=== PATIENT | female | born 1990 | race Caucasian/White ===

== ENCOUNTER 2024-12-23 18:55 | Emergency (ER) | payer BC, SELFPAY ==
[2024-12-23 18:57] VITALS: BP 128/79
--- NOTE | 2024-12-23 19:05 | ED.GENMED ---
History of Present Illness
<Heather Schneider NP - Last Filed: 12/24/24 00:04>
General
Chief Complaint: Vaginal Bleeding
Source: patient
Exam Limitations: none
Time Seen by Provider: 12/23/24 18:59
Nursing documentation reviewed up to this point in time: agreed with
History of Present Illness
History of Present Illness:
Patient to ED wt complaint of heavy vaginal bleeding, pelvic cramping. SHe reports that she is approx 7 weeks . IVF. US last week she states revealed no further growth of the fetus. She has a D&C scheduled for 12/28. she started
with vaginal bleeding. This evening bleeding became heavy, cramping worsening. Follow with OB at [facility] but was advised to come to nearest ED. She reports this is the 6th IVF attempt. No live births. To ED with spouse for eval. VSS,
afebrile.
Past History
<Heather Schneider LEARNING SUPPORT TEACHER - Last Filed: 12/24/24 00:04>
Past History
ED Past Medical History: None
ED Past Surgical History: None
Review of Systems
<Heather Schneider LEARNING SUPPORT TEACHER - Last Filed: 12/24/24 00:04>
Review of Systems
Allergies reviewed?: Yes
All Other Systems: ROS reviewed and negative except as documented in HPI and ROS
Constitutional: Reports no symptoms
EENT: Reports no symptoms
Respiratory: Reports no symptoms
Cardiac: Reports no symptoms
ABD/GI: Reports no symptoms
: Reports bleeding (heavy vaginal bleeding, worsening pelvic cramping.)
Musculoskeletal: Reports no symptoms
Skin: Reports no symptoms
Neurological: Reports no symptoms
Psychiatric: Reports no symptoms
Phy Exam
<Heather Schneider LEARNING SUPPORT TEACHER - Last Filed: 12/24/24 00:04>
General Physical Exam
General Presentation: moderate distress
General age: appears stated age
General Skin: warm and dry
General Habitus: normal
General Mental: alert
Gastrointestinal Exam
Gastrointestinal Exam: normal bowel sounds, non tender, soft and no organomegaly
Genitourinary Exam Female
Exam Female: vaginal bleeding
Vaginal Exam: blood
Vaginal Bleeding: clots and moderate
Musculoskeletal Exam
Musculoskeletal Exam: full ROM and neuro vasc intact
Skin Exam
Skin Exam: normal color, warm/dry and no rash
Psychiatric Exam
Psychiatric Exam: normal mood/affect
Course
<Heather Schneider NP - Last Filed: 12/24/24 00:04>
Orders/Labs/Results
Orders:
Orders
12/23/24 19:06
0.9% Sodium Chloride 1000 ml [Nss] 1,000 ml IV BOLUS
12/23/24 19:10
Complete Blood Count/With Diff Urgent
Comprehensive Metabolic Panel Urgent
12/23/24 19:11
Type+Screen Urgent
12/23/24 19:21
0.9% Sodium Chloride 1000 ml [Nss] 1,000 ml IV BOLUS
Ketorolac [Toradol] 15 mg IV NOW STA
12/23/24 19:27
US W Transvaginal Urgent
Reason For Exam: cramping, bleeding
12/23/24 19:33
Ondansetron Injectable [Zofran] 4 mg IV NOW STA
12/23/24 20:20
HCG, Beta Quantitative [Beta HCG Quantitative] Urgent
Is this a screen?: No
PTT Urgent
Prothrombin Time Urgent
12/23/24 20:28
ABO2 Urgent
BBK Wristband Number:
Associate notified that ABO2 has been ordered: [id number]
Date: 12/23/24
Time: 19:40
Msw ID: [id number]
12/23/24 22:54
Morphine Sulfate 2 mg IV NOW STA
12/24/24 01:09
Ketorolac [Toradol] 15 mg IV NOW STA
Abnormal Lab Results
12/23/24
19:10
Hct 36.1 L %
(37.0-47.0)
Eosinophils % 7.3 H %
(0-6)
Chloride 112 H mmol/L
(98-107)
Glucose 106 H mg/dl
(70-99)
12/23/24 19:10
12/23/24 19:10
Vital Signs
Initial and Last Documented VS:
Initial Vital Signs
Temp Pulse Resp BP Pulse Ox
98.2 F 70 18 128/79 99
12/23/24 18:57 12/23/24 18:57 12/23/24 18:57 12/23/24 18:57 12/23/24 18:57
Last Documented Vital Signs
Temp Pulse Resp BP Pulse Ox
98.2 F 66 16 98/65 100
12/23/24 18:57 12/23/24 20:30 12/23/24 20:30 12/23/24 20:00 12/23/24 20:30
<Hadley Mccormick, DO - Last Filed: 12/24/24 01:16>
Orders/Labs/Results
Orders:
Orders
12/23/24 19:06
0.9% Sodium Chloride 1000 ml [Nss] 1,000 ml IV BOLUS
12/23/24 19:10
Complete Blood Count/With Diff Urgent
Comprehensive Metabolic Panel Urgent
12/23/24 19:11
Type+Screen Urgent
12/23/24 19:21
0.9% Sodium Chloride 1000 ml [Nss] 1,000 ml IV BOLUS
Ketorolac [Toradol] 15 mg IV NOW STA
12/23/24 19:27
US W Transvaginal Urgent
Reason For Exam: cramping, bleeding
12/23/24 19:33
Ondansetron Injectable [Zofran] 4 mg IV NOW STA
12/23/24 20:20
HCG, Beta Quantitative [Beta HCG Quantitative] Urgent
Is this a screen?: No
PTT Urgent
Prothrombin Time Urgent
12/23/24 20:28
ABO2 Urgent
BBK Wristband Number:
Associate notified that ABO2 has been ordered: [id number]
Date: 12/23/24
Time: 19:40
Msw ID: [id number]
12/23/24 22:54
Morphine Sulfate 2 mg IV NOW STA
12/24/24 01:09
Ketorolac [Toradol] 15 mg IV NOW STA
Abnormal Lab Results
12/23/24
19:10
Hct 36.1 L %
(37.0-47.0)
Eosinophils % 7.3 H %
(0-6)
Chloride 112 H mmol/L
(98-107)
Glucose 106 H mg/dl
(70-99)
12/23/24 19:10
12/23/24 19:10
Vital Signs
Initial and Last Documented VS:
Initial Vital Signs
Temp Pulse Resp BP Pulse Ox
98.2 F 70 18 128/79 99
12/23/24 18:57 12/23/24 18:57 12/23/24 18:57 12/23/24 18:57 12/23/24 18:57
Last Documented Vital Signs
Temp Pulse Resp BP Pulse Ox
98.2 F 66 16 98/65 100
12/23/24 18:57 12/23/24 20:30 12/23/24 20:30 12/23/24 20:00 12/23/24 20:30
&;Heather Schneider NP - Last Filed: 12/24/24 00:04>
*Pulse Oximetry
SaO2: 99
Oxygen Mode of Delivery: Room air
Patient hypoxic: no
<Heather Schneider NP - Last Filed: 12/24/24 00:04>
Update Note
Update Note:
Patient to ED wt complaint of heavy vaginal bleeding, cramping. SHe is approx 7 weeks thru IVF,. Bleeding started on friday but today became much worse. US report reviewed. Case discussed with Dr. Wong who examinined patient in ED.
Patient reports bleeding has lessened since her US. Dr. Wong requesting pad count, will reassess in 1 hour. VSS. She remains afebrile. Hg. 12.4. HCG 5351. Patient reesting quietly, in no distresss.
<Hadley Mccormick DO - Last Filed: 12/24/24 01:16>
Update Note
Update Note:
[facility] complaint of heavy vaginal bleeding, cramping. SHe is approx 7 weeks thru IVF,. Bleeding started on friday but today became much worse. US report reviewed. Case discussed with Dr. Wong who examinined patient in ED.
Patient reports bleeding has lessened since her US. Dr. Wong requesting pad count, will reassess in 1 hour. VSS. She remains afebrile. Hg. 12.4. HCG 5351. Patient reesting quietly, in no distresss.
Patient seen by Dr. Wong. She recommends patient be discharged home. Dose of Toradol. Follow-up with reproductive endocrinology in the morning
ED Attending Note
<Heather Schneider NP - Last Filed: 12/24/24 00:04>
-
Portions of this chart may have been created with voice recognition software.� Occasional wrong word or��sound alike� substitutions may have occurred due to the inherent limitations of voice recognition software.
Discharge Plan
Departure
Patient Disposition: Home (Routine Discharge)
Date of Disposition: 12/24/24
Time of Disposition: 01:13
Patient with high blood pressure during this ER visit?: No
Condition: Good
Discharge Problem:
Vaginal bleeding
Instructions: loss - ED discharge instructions
Referrals:
Alonzo Riddle DO [Family Provider]
Nikki Wong MD [Active, Gynecology]
Activity Restrictions/Additional Instructions:
Please follow-up with your labor conciliator at your previously scheduled appointment in the morning.
Thank You for choosing [facility].
It was a pleasure meeting you and taking part in your care. We hope for your continued healing and wellness.
Please read discharge instructions in their entirety. However, they are for general education and may not describe your exact diagnosis at discharge. Information on your ER visit and medical conditions were discussed with you along with appropriate
follow up information...
If indicated, please take your medications as instructed and indicated on discharge paperwork.
Please schedule a follow up appointment as directed. Call to schedule an appointment
Please return to the emergency department with ANY change in, persisting, or worsening of symptoms. If any of your symptoms do not improve, or persist, or become more severe within 6-12 hours, please return to the emergency department for further
care.
Please return to the emergency department if you develop a headache, neck pain/stiffness, fever greater than 100.4F, chest pain, shortness of breath, persistent nausea, vomiting, slurred speech, difficulty walking, numbness/tingling, weakness, signs
of infection or any other symptoms that are worrisome to you.
If you have any questions or concerns please do not hesitate to call the Hospital at or E-mail me directly at [email or web address]
Interventions
Interventions:
*Risk Screen - Suicide Last Done: 12/23/24 18:57
*General Assessment Last Done: 12/23/24 18:57
*Neglect/Abuse Screening Last Done: 12/23/24 18:57
*ED- Fall Risk Assessment Last Done: 12/23/24 19:31
*ED COVID-19 Vaccine History Last Done: 12/23/24 19:31
ED-Female Genitourinary Assessment Last Done: 12/23/24 19:27
Discharge Date and Time
Print Language: MONGOLIAN
[2024-12-23 19:12] VITALS: BMI 24.4
[2024-12-23 19:17] LABS: % Eosinophils 7.3 % (0-6); % Immature Granulocytes 0.3 % (0-0.5); % Lymphocytes 30.2 % (20.5-51.1); % Monocytes 5.7 % (1.7-9.3); % Neutrophils 55.5 % (42.2-75.2); Absolute Basophils 0.1 10^3/uL (0-0.2); Absolute Eosinophils 0.7 10^3/uL (0-0.7); Absolute Lymphocytes 2.8 10^3/uL (1.2-3.4); Absolute Monocytes 0.5 10^3/uL (0.1-0.6); Absolute Neutrophils 5.1 10^3/uL (1.4-6.5); Hematocrit 36.1 % (37.0-47.0); Hemoglobin 12.4 g/dL (12.0-16.0); Mean Corp Hgb Conc. 34.3 g/dL (33.0-37.0); Mean Corpuscular Hgb 28.5 pg (27.0-31.0); Mean Platelet Volume 8.9 fL (7.4-10.4); Nucleated Red Blood Cells % 0 %; Platelet Count 305 10^3/uL (130-400); Red Blood Cell Count 4.35 10^6/uL (4.20-5.40); Red Cell Dist. Width 13.3 % (11.5-14.5); White Blood Cell Count 9.1 10^3/uL (4.8-10.8)
[2024-12-23] MEDS: NSS 1000 IV ×2 (19:23→20:29)
[2024-12-23 19:27] VITALS: BP 120/79
[2024-12-23] MEDS: TORADOL 15 MG IV (19:27)
[2024-12-23] MEDS: ZOFRAN 4 MG IV (19:36)
[2024-12-23 19:38] LABS: ALT (SGPT) 17 U/L (0-35); AST (SGOT) 18 U/L (14-36); Albumin 4.1 g/dl (3.5-5.0); Alkaline Phosphatase 55 U/L (38-126); Blood Urea Nitrogen 12 mg/dl (7-17); Calcium 9.5 mg/dl (8.4-10.2); Carbon Dioxide 22 mmol/L (22-30); Chloride 112 mmol/L (98-107); Estimated Creatinine Clearance 116 ml/min; Glucose 106 mg/dl (70-99); Potassium 3.7 mmol/L (3.5-5.1); Sodium 139 mmol/L (135-145); Total Bilirubin 0.3 mg/dl (0.2-1.3); Total Protein 6.9 g/dl (6.3-8.2); eGFR > 60.00
[2024-12-23 20:00] VITALS: BP 98/65
[2024-12-23 20:45] LABS: INR 0.96
[2024-12-23 20:46] LABS: APTT 27.2 Sec (23.4-35.0)
[2024-12-23 21:34] VITALS: BP 105/73
[2024-12-23 22:00] VITALS: BP 105/65
[2024-12-23 23:00] VITALS: BP 106/77
[2024-12-23] MEDS: MORPHINE SULFATE 2 MG IV (23:37)
[2024-12-24] VITALS: BP 108/74
[2024-12-24 01:00] VITALS: BP 99/68
[2024-12-24] MEDS: TORADOL 15 MG IV (01:23)
== END 2024-12-24 01:15 | disposition home or self-care (01) ==
LOC: EMR 18:55
PROVIDERS: Nurse Practitioner; EMERGENCY PHYSICIAN Emergency Medicine; FAMILY PHYSICIAN Family Medicine
DX: O20.9 Hemorrhage in early pregnancy, unspecified (principal); O26.891 Other specified pregnancy related conditions, first trimester; R10.2 Pelvic and perineal pain; Z3A.01 Less than 8 weeks gestation of pregnancy
CPT/HCPCS: 96374; 96375; 96376; 96361; 99284; 76801; 76817; 80053; 84702; 85025; 85610; 85730; 86850; 86900; 86901